=== PATIENT | male | born 1935 | race Caucasian/White ===

== ENCOUNTER 2023-02-20 16:43 | Inpatient (IN) | payer MEDICARE, OTHER ==
[~2023-02-20] VITALS: Ht 180.3 cm; Wt 79.0 kg
[2023-02-20 19:15] LABS: Base Excess Venous 13.9 mmol/L; Bicarbonate Venous 35.5 mmol/L (24.0-30.0); PCO2 Venous 63 mmHg (38-42)
[2023-02-20 19:43] VITALS: BP 117/81
[2023-02-20 20:00] VITALS: BP 111/49
[2023-02-20 21:00] VITALS: BP 127/55
[2023-02-20] MEDS ORDERED: ACETAMINOPHEN500 M2 PO (21:42)
[2023-02-20] MEDS ORDERED: HYDROCODONE-AC1 EA10 PO (21:46)
[2023-02-20] MEDS ORDERED: DOXA4 PO (21:47)
[2023-02-20] MEDS ORDERED: ELIQUIS2.5 MG PO (21:47)
[2023-02-20] MEDS ORDERED: FINA5 PO (21:47)
[2023-02-20] MEDS ORDERED: INSULANI SC (21:48)
[2023-02-20] MEDS ORDERED: Prinivil10 MG PO (21:49)
[2023-02-20] MEDS ORDERED: MAGNESIUM OXID500 MG PO (21:50)
[2023-02-20] MEDS ORDERED: METO50ER PO (21:50)
[2023-02-20] MEDS ORDERED: B-100 COMPLEX100 MG PO (21:51)
[2023-02-20] MEDS ORDERED: CENTRUM SILVER1 EAC2 PO (21:51)
[2023-02-20] MEDS ORDERED: OMEPRAZOLE MAGN20 M1 PO (21:52)
[2023-02-20] MEDS ORDERED: EZALLOR SPRINKL20 MG PO (21:53)
[2023-02-20] MEDS ORDERED: FIRVANQ50 MG/1 ML PO (22:00)
[2023-02-20 23:56] VITALS: BP 109/53
[2023-02-21] VITALS (17 sets, daily range): BP systolic 79–115; BP diastolic 48–74
[2023-02-21 03:24] LABS: Base Excess Venous 15.1 mmol/L; Bicarbonate Venous 36.4 mmol/L (24.0-30.0); PCO2 Venous 60.7 mmHg (38-42); pH Blood Venous 7.42 (7.34-7.37)
[2023-02-21 03:52] LABS: BASOPHILS ABSOLUTE AUTO 0.04 K/mm3 (0.00-0.23); BASOPHILS PERCENT AUTO 1 % (0-2); EOSINOPHILS ABSOLUTE AUTO 0.03 K/mm3 (0.00-0.68); EOSINOPHILS PERCENT AUTO 1 % (0-6); Hematocrit 29.5 % (37.0-53.0); Hemoglobin 8.3 g/dL (13.5-17.5); IMMATURE GRAN ABSOLUTE AUTO 0.05 K/mm3 (0.00-0.10); IMMATURE GRAN PERCENT AUTO 1 % (0-1); LYMPHOCYTES ABSOLUTE AUTO 0.95 K/mm3 (0.84-5.20); LYMPHOCYTES PERCENT AUTO 20 % (21-46); MONOCYTES ABSOLUTE AUTO 0.38 K/mm3 (0.16-1.47); MONOCYTES PERCENT AUTO 8 % (4-13); Mean Corpuscular HGB 23.8 pg (26.0-34.0); Mean Corpuscular HGB Conc 28.1 g/dL (31.5-36.5); Mean Corpuscular Volume 85 fL (80-100); Mean Platelet Volume 9.4 fL (9.1-12.4); NEUTROPHILS PERCENT AUTO 69 % (41-73); Platelet Count 177 K/mm3 (150-400); RDW Coefficient Variation 17.3 % (11.7-14.2); RDW Standard Deviation 53.3 fL (35.1-46.3); Red Blood Cell Count 3.49 M/mm3 (4.30-5.90); White Blood Cell Count 4.65 K/mm3 (4.00-11.30)
[2023-02-21 04:10] LABS: Calcium, Blood 8.6 mg/dL (8.5-10.1); Creatinine, Blood 1.05 mg/dL (0.60-1.20); Potassium, Blood 4.3 mmol/L (3.5-5.5)
--- NOTE | 2023-02-21 05:07 | NUR ---
SHIFT SUMMARY A/Ox2-3, CONFUSED/IMPULSIVE AT TIMES FOR PT HAS FREQUENTLY PULLED OF HIS TELE LEADS, SPO2 SENSOR, AND HIS OXYGEN. IS COOPERATIVE WITH CARE WITH REDIRECTION, BUT QUICKLY REVERTS BACK TO PULLING AT LINES. CARDIAC, ~0100 THIS AM PT CONVERTED FROM SR 70-80'S TO AFIB RHYTHM IN THE 90-110'S. PT DENIES ANY CP OR PRESSURE OF THIS NOTE. RESPIRATORY, MAINTAINS SPO2 >90% ON HIS BASELINE O2 OF 2L (PER THE SPOUSES REPORT . CONTINUES TO HAVE DIMINISHED LS WELL FINE INSPIRATORY CRACKLES IN THE BASES. DENIES ANY SOB OR DYSPNEA AT REST HOWEVER. GI/, PT HAS BEEN INCONTINENT T/O THE NIGHT, CONDOM CATH PLACED. CONDOM CATH PATENT AND DRAINING YELLOW URINE TO GRAVITY. NO BM FOR MY SHIFT. PT IS WHEELCHAIR BOUND AT HOME (PER PT S SPOUSE) DUE TO HX OF LEFT BKA. PT HAS REMAINED NPO SINCE MD PER POTENTIAL THORACENTESIS THIS AM. ASSESSED PT FOR RISKS OF ANY IGNITION SOURCES WELL BEHAVIORS FOR INCREASED RISKS OF FIRE DANGER. PT EDUCATED ON COMMON SOURCES OF IGNITION WELL NEED TO KEEP A SAFE ENVIRONMENT. PT VOICED UNDERSTANDING. NO NEW ORDERS AT THIS TIME, WILL REPORT TO ONCOMING RN. VIKTORIA MOSHER OF THIS NOTE.
--- NOTE | 2023-02-21 07:15 | NUR ---
CARE ASSUMPTION DURING BEDSIDE SHIFT REPORT WITH MARIBEL RN THE PT IS LYING IN BED AWAKE ON 2L NC. PT IS CONFUSED ABOUT WHERE HE IS BUT HE CAN TELL ME HIS NAME AND DATE OF . PT DENIES ANY PAIN OR NAUSEA AND IS SPEAKING TO THIS RN W A SOFT BUT CLEAR VOICE. SPO2 >92% ON 2L NC.
[2023-02-21 08:17] LABS: International Normalized Ratio 1.19; Prothrombin Time Results 12.4 Sec (9.7-11.5)
[2023-02-21 13:49] LABS: Glucose, Blood 95 mg/dL (70-99)
--- NOTE | 2023-02-21 16:02 | NUR ---
UPDATE PTROVIDER NOTIFIED THAT PT WAS ABLE TO PASS BEDSIDE SWALLOW EVAL, PT PLACED ON CLEAR LIQUID DIET W ADVANCEMENT TOLERATED. PROVIDER NOTIFIED THAT THE PT HAS HAD VERY MINIMAL URINE OUTPUT THIS SHIFT AND BLADDER SCAN SHOWING 200ML. ORDER TO BLADDER SCAN PRN AND MONITOR.
--- NOTE | 2023-02-21 16:49 | NUR ---
DAY SHIFT SUMMARY PT HAS REMAINED AXO X2 BUT IS STILL CONFUSED ABOUT WHERE HE IS AND WHY HE IS HERE. THE PT HAS BEEN DROWSY THIS SHIFT TAKING SHORT NAPS ON AND OFF THROUGH OUT THE DAY. PT'S BP SOFT THIS SHIFT EVEN AFTER RECIEVING 1L NS BOLUS BUT REMAINED STABLE W MAP >65. MONITOR SHOWING AFIB 100-120'S W OCCASIONAL PVC'S THIS SHIFT. PT MAINTAINING SPO2 >92% ON 1-2L NC THIS SHIFT BUT WAS TITRATED DOWN TO RM AIR THIS AFTERNOON. PT HAS HAD ALMOST NO URINE OUTPUT THIS SHIFT AND BLADDER SCANS HAVE SHOWN <200ML, PROVIDER NOTIFIED W NO NEW ORDERS GIVEN. PT HAD ONE LOOSE INCONTINENT BM THIS SHIFT. PT'S UPDATED ON PT'S CONDITION AT 1650. PT PASSING BEDSIDE SWALLOW EVAL THIS AFTERNOON AND TOLERATING CLEAR LIQUIDS. WILL REPORT TO ONCOMING RN.
[2023-02-21 19:40] LABS: Glucose, Blood 210 mg/dL (70-99)
--- NOTE | 2023-02-21 23:30 | NUR ---
UPDATE PT CONTINUES TO HAVE VERY LITTLE URINE OUTPUT. DR. EATON MADE AWARE WITH ORDERS FOR 250ML NS BOLUS AND CONTINUE TO MONITOR WITH BLADDER SCANS. NO OTHER ORDERS AT THIS TIME.
[2023-02-22] VITALS (18 sets, daily range): BP systolic 76–125; BP diastolic 36–85
[2023-02-22 01:26] LABS: BASOPHILS ABSOLUTE AUTO 0.02 K/mm3 (0.00-0.23); BASOPHILS PERCENT AUTO 0 % (0-2); EOSINOPHILS ABSOLUTE AUTO 0.02 K/mm3 (0.00-0.68); EOSINOPHILS PERCENT AUTO 0 % (0-6); Hematocrit 27.3 % (37.0-53.0); IMMATURE GRAN ABSOLUTE AUTO 0.04 K/mm3 (0.00-0.10); IMMATURE GRAN PERCENT AUTO 1 % (0-1); LYMPHOCYTES PERCENT AUTO 22 % (21-46); MONOCYTES ABSOLUTE AUTO 0.42 K/mm3 (0.16-1.47); MONOCYTES PERCENT AUTO 8 % (4-13); Mean Corpuscular HGB Conc 29.3 g/dL (31.5-36.5); Mean Corpuscular Volume 82 fL (80-100); Mean Platelet Volume 9.6 fL (9.1-12.4); NEUTROPHILS ABSOLUTE AUTO 3.49 K/mm3 (1.96-9.15); NEUTROPHILS PERCENT AUTO 69 % (41-73); Platelet Count 174 K/mm3 (150-400); RDW Coefficient Variation 17.4 % (11.7-14.2); RDW Standard Deviation 52.1 fL (35.1-46.3); Red Blood Cell Count 3.34 M/mm3 (4.30-5.90); White Blood Cell Count 5.09 K/mm3 (4.00-11.30)
[2023-02-22 01:43] LABS: Albumin, Blood 1.6 g/dL (3.4-5.0); Albumin/Globulin Ratio 0.4 (0.8-1.8); Bilirubin, Total 0.3 mg/dL (0.1-1.0); Bun/Creatinine Ratio 20.9 (12.0-20.0); Calcium, Blood 8.2 mg/dL (8.5-10.1); Creatinine, Blood 1.1 mg/dL (0.60-1.20); Globulin, Blood 3.7 g/dL (2.2-4.0); Potassium, Blood 3.8 mmol/L (3.5-5.5); Total Protein, Blood 5.3 g/dL (6.4-8.2)
--- NOTE | 2023-02-22 05:15 | NUR ---
SHIFT SUMMARY A/Ox2-3, CONTINUES TO BE CONFUSED/IMPULSIVE AT TIMES FOR PT HAS FREQUENTLY ATTEMPTED TO PULL OF HIS TELE LEADS, SPO2 SENSOR, AND OR HIS OXYGEN. A 1:1 SITTER AND OR REMOTE MONITORING HAS BEEN UTILIZED IN THE ROOM T/O THE SHIFT. FOR THE MOST PART, PT IS COOPERATIVE WITH CARE WHEN PROVIDED WITH REDIRECTION. CARDIAC, REMAINS IN A AFIB RHYTHM 90-120 S. WITH NO REPORTS OF ANY CP OR PRESSURE. RESPIRATORY, MAINTAINS SPO2 >90% ON RA-2L VIA HUMIDIFIED NC. CONTINUES TO HAVE DIMINISHED LS (ESPECIALLY ON RIGHT SIDE) WELL FINE INSPIRATORY CRACKLES IN THE BASES. DENIES ANY SOB OR DYSPNEA AT REST HOWEVER. GI/, PT HAS BEEN INCONTINENT T/O THE NIGHT OF BOTH URINE AND STOOL. PT CONTINUES TO HAVE POOR URINE OUTPUT AND HE APPEARS DRY. PROVIDER AWARE WITH ONE 250ML BOLUS OF NS ORDERED. AN HOUR AFTER BOLUS, PT FINALLY VOIDED MIKAYLA COLORED URINE. CONDOM CATH HAS BEEN PATENT AND DRAINING MIKAYLA URINE TO GRAVITY. INCONTINENT BM AT THE START OF THE SHIFT. STOOL CONTINUES TO BE SOFT/RUNNY, BUT BROWN IN COLOR. PT IS WHEELCHAIR BOUND AT HOME. CURRENTLY IS VERY WEAK AND CEILING LIFT SHOULD BE USED TO HELP AMBULATE PT TO CHAIRS. PT HAS REMAINED NPO SINCE MDN FOR SCHEDULED THORACENTESIS THIS AM. ASSESSED PT FOR RISKS OF ANY IGNITION SOURCES WELL BEHAVIORS FOR INCREASED RISKS OF FIRE DANGER. PT EDUCATED ON COMMON SOURCES OF IGNITION WELL NEED TO KEEP A SAFE ENVIRONMENT. PT VOICED UNDERSTANDING. NO NEW ORDERS AT THIS TIME, WILL REPORT TO ONCOMING RN. VIKTORIA MOSHER OF THIS NOTE.
[2023-02-22 07:49] LABS: Glucose, Blood 121 mg/dL (70-99)
[2023-02-22 07:59] LABS: Percent Saturation 36.8 % (20.0-50.0)
[2023-02-22 10:14] LABS: Automated BF RBC Count 0.013 M/mm3 (0-0); Automated BF WBC Count 1.414 K/mm3 (0-999)
[2023-02-22 10:21] LABS: Body Fluid WBC Count 1414 /mm3 (0-999); RBC Count, Body Fluid 13000 /mm3 (0-0)
[2023-02-22 10:24] LABS: Lactate Dehydrogenase, Body Fl 219 U/L
[2023-02-22 10:28] LABS: pH, Body Fluid 7.4
[2023-02-22 11:08] LABS: Total Cell Count, Body Fluid 100
[2023-02-22 11:10] LABS: Color, Body Fluid Yellow (None-Yellow)
--- NOTE | 2023-02-22 18:43 | NUR ---
PT SUMMARY: PT HAD THORACENTESIS DONE TODAY 45OMLS FLUID WAS TAKEN OUT, DRESSING ON RIGHT MID BACK INTACT, NO HEMATOMA/BLEEDING NOTED. PT BP WAS STILL RUNNING SOFT 90'S-100'S WITH MAP>60'S ORTHOSTATIC BP'S WITH NO CHANGES ONE TIME INFUSION OF 500MLS LR WAS INFUSED SBP STAYED >100 AFTER ALSO DIET WAS ADVANCED TO SOFT DIET AND PT TOLERATED WELL. HRR REMAINED AFIB CONTROLLED AT 80'S-90'S, SATS ABOVE 93% ON 1L OF O2, AFEBRILE. PT ALERT AND ORIENTED X3 STILL HAS SOME CONFUSION MOSTLY UPON WAKING UP, WILL PULL ON LINES AND TUBINGS, REMOTE MONITORING STILL ONGOING. PT HAS NO URINE OUTPUT AT LUNCH TIME CALLED PROVIDER DR HEARN ORDERED RENAL GEO THEN BEFORE SHIFT ENDS PT STILL HAS NO URINE IA CONDOM CATH AND BLADDER SCAN SHOWS 200MLS URINE RETAINED, CALLED DR SUH ABOUT RESULT OF RENAL GEO (RENAL AND BLADDER CALCULI) ORDERED TO STRAIGHT CATH PT, STRAIGHT CATH PERFORMED 200MLS URINE WAS COLLECTED URINE DARK YELLOW IN COLOR WITH SEDIMENTS. PT HAD 2 LOOSE DARK BROWN BM, BED BATH COMPLETED. PT/OT ABLE TO WORK WITH THE PT, PT WAS ABLE TO SIT ON THE SIDE OF THE BED PER REPORT, STILL TO USE CEILING LIFT FOR TRANSFERS. JESSICA CALLED AND WAS GIVEN UPDATE REGARDING PT'S STATUS. PT RESTING IN BED AT THIS TIME, CALL LIGHTS IN REACH WILL REPORT TO ONCOMING SHIFT
[2023-02-23 03:00] VITALS: BP 115/54
--- NOTE | 2023-02-23 03:05 | NUR ---
UPDATE PT NOTED TO HAVE NO URINE OUTPUT FOR >6HRS. BLADDER SCAN REVEALED ONLY 229ML IN BLADDER. DR. OLIVA NOTIFIED WITH ORDERS TO ADMINISTER 500ML BOLUS OF NS AND TO CONTINUE TO MONITOR PT. NO OTHER ORDERS AT THIS TIME.
[2023-02-23 03:07] LABS: BASOPHILS ABSOLUTE AUTO 0.02 K/mm3 (0.00-0.23); BASOPHILS PERCENT AUTO 1 % (0-2); EOSINOPHILS ABSOLUTE AUTO 0.06 K/mm3 (0.00-0.68); EOSINOPHILS PERCENT AUTO 1 % (0-6); Hematocrit 27.1 % (37.0-53.0); Hemoglobin 7.8 g/dL (13.5-17.5); IMMATURE GRAN ABSOLUTE AUTO 0.03 K/mm3 (0.00-0.10); IMMATURE GRAN PERCENT AUTO 1 % (0-1); LYMPHOCYTES ABSOLUTE AUTO 1.04 K/mm3 (0.84-5.20); LYMPHOCYTES PERCENT AUTO 25 % (21-46); MONOCYTES ABSOLUTE AUTO 0.39 K/mm3 (0.16-1.47); MONOCYTES PERCENT AUTO 9 % (4-13); Mean Corpuscular HGB Conc 28.8 g/dL (31.5-36.5); Mean Corpuscular Volume 83 fL (80-100); Mean Platelet Volume 9.5 fL (9.1-12.4); NEUTROPHILS ABSOLUTE AUTO 2.64 K/mm3 (1.96-9.15); NEUTROPHILS PERCENT AUTO 63 % (41-73); Platelet Count 165 K/mm3 (150-400); RDW Coefficient Variation 17.8 % (11.7-14.2); RDW Standard Deviation 54.4 fL (35.1-46.3); Red Blood Cell Count 3.25 M/mm3 (4.30-5.90); White Blood Cell Count 4.18 K/mm3 (4.00-11.30)
[2023-02-23 03:29] LABS: Albumin, Blood 1.6 g/dL (3.4-5.0); Albumin/Globulin Ratio 0.4 (0.8-1.8); Bilirubin, Total 0.4 mg/dL (0.1-1.0); Bun/Creatinine Ratio 19.2 (12.0-20.0); Calcium, Blood 8.3 mg/dL (8.5-10.1); Creatinine, Blood 1.04 mg/dL (0.60-1.20); Globulin, Blood 3.7 g/dL (2.2-4.0); Potassium, Blood 3.6 mmol/L (3.5-5.5); Total Protein, Blood 5.3 g/dL (6.4-8.2)
[2023-02-23 03:56] VITALS: BP 109/53
--- NOTE | 2023-02-23 05:50 | NUR ---
SHIFT SUMMARY A/Ox2-3, CONTINUES TO BE CONFUSED/IMPULSIVE AT TIMES FOR PT HAS FREQUENTLY ATTEMPTED TO PULL OF HIS TELE LEADS, SPO2 SENSOR, AND OR HIS OXYGEN. REMOTE MONITORING HAS BEEN UTILIZED IN THE ROOM T/O THE SHIFT. FOR THE MOST PART, PT IS COOPERATIVE WITH CARE WHEN PROVIDED WITH REDIRECTION. CARDIAC, REMAINS IN AFIB RHYTHM 80-100'S. WITH NO REPORTS OF ANY CP OR PRESSURE. RESPIRATORY, MAINTAINS SPO2 >90% ON RA-2L VIA HUMIDIFIED NC. LS IMPROVED FROM PREVIOUS NIGHT. DENIES ANY SOB OR DYSPNEA AT REST HOWEVER. PT UNDERWENT THORACENTESIS YESTERDAY PM WITH 450ML OF FLUID REMOVED PER DAY SHIFT REPORT. GI/, PT HAS BEEN INCONTINENT T/O THE NIGHT OF BOTH URINE AND STOOL. PT CONTINUES TO HAVE POOR URINE OUTPUT AND HE APPEARS DRY. PROVIDER AWARE WITH ONE 500ML BOLUS OF NS ORDERED. CONTINUES TO NOT HAVE ANY URINE OUTPUT DESPITE BOLUS. MD MADE AWARE WITH ORDERS TO CONTINUE TO MONITOR. CONTINUES TO HAVE SOFT/LIQUID BROWN STOOLS. PT IS WHEELCHAIR BOUND AT HOME. CURRENTLY IS VERY WEAK, BUT PT/OT ARE ON BOARD. PT'S DIET HAS BEEN ADVANCED TO SOFT BITE SIZE. THIS RN ENCOURAGED INCREASING PO FLUID INTAKE T/O THE SHIFT. ASSESSED PT FOR RISKS OF ANY IGNITION SOURCES WELL BEHAVIORS FOR INCREASED RISKS OF FIRE DANGER. PT EDUCATED ON COMMON SOURCES OF IGNITION WELL NEED TO KEEP A SAFE ENVIRONMENT. PT VOICED UNDERSTANDING. NO NEW ORDERS AT THIS TIME, WILL REPORT TO ONCOMING RN. VIKTORIA MOSHER OF THIS NOTE.
[2023-02-23 12:07] VITALS: BP 94/56
[2023-02-23 16:21] VITALS: BP 109/67
--- NOTE | 2023-02-23 16:26 | NUR ---
Case conference: Spoke with pt's Sherry today by phone. She is his primary decision maker. She initially stated she wants him to remain a "Full Code", but after our talk she states she will talk with the patient, and re-evaluate. She reports the pt was seen at [facility] for Left BKA, then to SNF in [facility]. Once d/c'd from SNF, he was promptly taken to [facility] by his for oxygen desaturations. He was admitted with pneumonia, then transferred here to [facility] for CHF exacerbation, ARF with hypoxia and hypercapnia. Large pleural effusion was noted on chest x-ray, so R side thoracentesis was ordered. Sherry reports both she and her want him to go to SNF preferrably in [place]. Plan to visit with pt tomorrow, as he did not appear to be awake enough for visit this am.
--- NOTE | 2023-02-23 18:44 | NUR ---
PT SUMMARY: PT WAS CONFUSED THIS MORNING PULLING ON LINES AND TUBINGS, PULLED TELE OFF MULTIPLE TIMES REMOTE MONITOR CALLED MULTIPLE TIMES WELL, PT STARTED TO REFUSE CARE WAS REDIRECTED MULTIPLE TIMES DOESNT SEEM TO RETAIN INFORMATION, REFUSE TO REPLACE BLUE SHIRT ON, WAS YELLING OUT THIS MORNING FOR HELP. PT C/O 11/24 LEFT LEG PAIN (PHANTOM PAIN) MEDICATED WITH DAILY TYLENOL AND WAS EFFECTIVE, THIS RN ABLE TO TALK TO THE ON THE PHONE THIS MORNING REQUESTED TO TALK TO THE PT TO REDIRECT HIM. PALLIATIVE CARE CAME AND SAW PT TODAY AND SPOKE TO THE , TO FF-UP CODE STATUS IN THE MORNING. FOLLOWED UP ECHO RESULT FROM [facility] PER [facility] ECHO WAS NOT DONE AT THEIR FACILITY, ECHO WAS ORDERED AND GOT DONE TODAY. ALSO CT CHEST AND ABD WAS DONE AND RESULTED RESIDENTS MADE AWARE OF RESULTS (PLEURAL EFFUSION). PT VITALS HRR REMAINED AFIB 80-90'S, SBP SOFT 90-110'S, SATS ABOVE 90% ON RA, AFEBRILE. PT HAD 280MLS OF DARK URINE OUTPUT FOR THE SHIFT VIA CONDOM CATH. PT WAS UP IN THE RECLINER TODAY TRANSFERED VIA LIFT. PT WITH POOR APPETITE ENSURE WAS OFFERED PT CONSUMED 2 CARTONS FOR THE SHIFT. PT REPOSITIONED IN BED FOR COMFORT. REMOTE MONITOR IN USE, BED ALARM ON FOR SAFETY, CALL LIGHTS IN REACH WILL REPORT TO ONCOMING SHIFT
[2023-02-23 21:26] VITALS: BP 136/55
[2023-02-24 00:44] VITALS: BP 116/81
[2023-02-24 04:00] VITALS: BP 116/48
[2023-02-24 04:36] LABS: BASOPHILS ABSOLUTE AUTO 0.03 K/mm3 (0.00-0.23); BASOPHILS PERCENT AUTO 1 % (0-2); EOSINOPHILS ABSOLUTE AUTO 0.04 K/mm3 (0.00-0.68); EOSINOPHILS PERCENT AUTO 1 % (0-6); Hematocrit 24.8 % (37.0-53.0); Hemoglobin 7.4 g/dL (13.5-17.5); IMMATURE GRAN ABSOLUTE AUTO 0.03 K/mm3 (0.00-0.10); IMMATURE GRAN PERCENT AUTO 1 % (0-1); LYMPHOCYTES ABSOLUTE AUTO 1.04 K/mm3 (0.84-5.20); LYMPHOCYTES PERCENT AUTO 26 % (21-46); MONOCYTES ABSOLUTE AUTO 0.33 K/mm3 (0.16-1.47); MONOCYTES PERCENT AUTO 8 % (4-13); Mean Corpuscular HGB 24.4 pg (26.0-34.0); Mean Corpuscular HGB Conc 29.8 g/dL (31.5-36.5); Mean Corpuscular Volume 82 fL (80-100); Mean Platelet Volume 10.5 fL (9.1-12.4); NEUTROPHILS ABSOLUTE AUTO 2.57 K/mm3 (1.96-9.15); NEUTROPHILS PERCENT AUTO 64 % (41-73); Platelet Count 147 K/mm3 (150-400); RDW Coefficient Variation 17.9 % (11.7-14.2); Red Blood Cell Count 3.03 M/mm3 (4.30-5.90); White Blood Cell Count 4.04 K/mm3 (4.00-11.30)
[2023-02-24 04:46] LABS: Albumin, Blood 1.6 g/dL (3.4-5.0); Albumin/Globulin Ratio 0.4 (0.8-1.8); Bilirubin, Total 0.3 mg/dL (0.1-1.0); Bun/Creatinine Ratio 18.7 (12.0-20.0); Calcium, Blood 8.1 mg/dL (8.5-10.1); Creatinine, Blood 1.07 mg/dL (0.60-1.20); Globulin, Blood 3.7 g/dL (2.2-4.0); Potassium, Blood 3.9 mmol/L (3.5-5.5); Total Protein, Blood 5.3 g/dL (6.4-8.2)
--- NOTE | 2023-02-24 06:49 | NUR ---
SHIFT SUMMARY PATIENT ALERT AND ORINETED X3. HAD NO COMPLAINTS OF PAIN OR SHORTNESS OF BREATH. PATIENT PLACED ON 1 LITER O2 FOR SLEEP TO HELP MAINTAIN OXYGEN >90%. VITAL SIGNS STABLE, AFIB ON TELE. NO ACUTE ISSUES NOTED OVERNIGHT. PATIENT ASSESSED FOR IGNITION RISK AND EDUCATED ON FIRE SAFETY IN THE HOSPITAL. WILL CONTINUE TO MONITOR. CALL LIGHT WITHIN REACH.
[2023-02-24 08:45] VITALS: BP 114/55
[2023-02-24 13:01] VITALS: BP 119/60
[2023-02-24 16:10] VITALS: BP 116/53
--- NOTE | 2023-02-24 18:14 | NUR ---
SHIFT SUMMARY LETHARGIC BUT WAKES TO VERBAL STIMULI. WEAK AND SOFT SPOKEN. SLEEPS MOST OF DAY. VSS, O2 AT 1L VIA NC. Q2 HR TURN. INC OF BLADDER AND BOWEL IN ATTENDS. CONDOM CATH IN PLACE, LOW URINE OUTPUT. BLADDER SCAN REVEALED MILD RETENTION OF 150-250 MLS. ENCOURAGING PO INTAKE OF FLUID. WATER, ICE TEA, AND MILK OFFERED. WORKED WITH OT, BED EXERCISES. ABLE TO EAT HIS MEALS ON HIS OWN. FORGETFUL, REMOTE MONITOR DISCONTINUED. MED STATUS. PLAN IS TO DC TO SNF ON [facility] WHERE HE LIVES. SPOKE WITH SPOUSE ON THE PHONE TODAY AND GAVE UPDATE.
[2023-02-25] VITALS (11 sets, daily range): BP systolic 96–121; BP diastolic 46–78
[2023-02-25 04:19] LABS: BASOPHILS ABSOLUTE AUTO 0.02 K/mm3 (0.00-0.23); BASOPHILS PERCENT AUTO 1 % (0-2); EOSINOPHILS ABSOLUTE AUTO 0.05 K/mm3 (0.00-0.68); EOSINOPHILS PERCENT AUTO 1 % (0-6); Hematocrit 24.5 % (37.0-53.0); Hemoglobin 7.2 g/dL (13.5-17.5); IMMATURE GRAN ABSOLUTE AUTO 0.02 K/mm3 (0.00-0.10); IMMATURE GRAN PERCENT AUTO 1 % (0-1); LYMPHOCYTES ABSOLUTE AUTO 0.96 K/mm3 (0.84-5.20); LYMPHOCYTES PERCENT AUTO 22 % (21-46); MONOCYTES ABSOLUTE AUTO 0.36 K/mm3 (0.16-1.47); MONOCYTES PERCENT AUTO 8 % (4-13); Mean Corpuscular HGB 24.2 pg (26.0-34.0); Mean Corpuscular HGB Conc 29.4 g/dL (31.5-36.5); Mean Corpuscular Volume 83 fL (80-100); Mean Platelet Volume 10.3 fL (9.1-12.4); NEUTROPHILS PERCENT AUTO 68 % (41-73); Platelet Count 140 K/mm3 (150-400); RDW Coefficient Variation 18.1 % (11.7-14.2); Red Blood Cell Count 2.97 M/mm3 (4.30-5.90); White Blood Cell Count 4.41 K/mm3 (4.00-11.30)
--- NOTE | 2023-02-25 06:24 | NUR ---
EOS NOTE: MOSTLY UNEVENTFUL NIGHT FOR PATIENT. PATIENT IS PLEASANTLY CONFUSED AND CONTINUALLY PULLS OF TELEMETRY DESPITE FREQUENTLY REORIENTING PATIENT TO SURROUNDINGS AND PURPOSE OF TELEMETRY STICKERS TO CHEST. OCCASIONALLY NEEDED TO BE PLACED ON 1L NC. MAINTAINED A.FIB 70-80'S. CONDOM CATH IN PLACE, STILL LOW URINE OUTPUT. MD AWARE.
[2023-02-25 06:46] LABS: Albumin, Blood 1.6 g/dL (3.4-5.0); Albumin/Globulin Ratio 0.4 (0.8-1.8); Bilirubin, Total 0.4 mg/dL (0.1-1.0); Bun/Creatinine Ratio 18.4 (12.0-20.0); Calcium, Blood 8.1 mg/dL (8.5-10.1); Creatinine, Blood 1.14 mg/dL (0.60-1.20); Globulin, Blood 3.6 g/dL (2.2-4.0); Total Protein, Blood 5.2 g/dL (6.4-8.2)
--- NOTE | 2023-02-25 08:05 | NUR ---
PATIENT IS ALERT AND ORIENTED. HE IS SOFT SPOKEN. 175 ML URINE DRAINED FROM CONDOM CATHETER AT 0800. DR. GARZA SAW THE PATIENT THIS MORNING. THE PATIENT NODS HIS HEAD YES OR NO MORE OFTEN THAN REPLYING VERBALLY. PATIENT STATES HE IS AND LIVES AT HOME WITH HIS AND THAT HE HAS A STEP DAUGHTER THAT IS HANDICAP. PATIENT IS ON RA AT THIS TIME, HE DOES DESAT WHILE LAYING IN BED TO 86% BUT RECOVERS QUICKLY WITHOUT SUPPLEMENTAL OXYGEN. PATIENT IS SITTING UP IN BED FOR BREAKFAST BUT HAS NOT TAKEN A BITE ON HIS OWN YET, HE STATES THAT HE CAN FEED HIMSELF. WILL CONTINUE TO MONITOR
--- NOTE | 2023-02-25 13:11 | NUR ---
PATIENT WAS TRANSFERRED TO THE RECLINER THIS MORNING BY OT AND RN. HE FED HIMSELF LUNCH. MORE AWAKE THIS AFTERNOON. WAITING TO INFUSE [facility]. UPDATE CALLED AND GIVEN TO THE PATIENT'S .
--- NOTE | 2023-02-25 13:51 | NUR ---
BLOOD TRANSFUSION STARTED AT 1349. VSS. PATIENT'S RESPIRATORY RATE IS FAST AT 34/MIN AND SHALLOW. HIS O2 SATURATION ON RA IS 92%. PATIENT IS ENCOURAGED TO DRINK WATER. POOR URINE OUTPUT. PATIENT IS ABLE TO HOLD CUP HIMSELF.
--- NOTE | 2023-02-25 15:23 | NUR ---
PATIENT IS SITTIN UP IN THE RECLINER, RECEIVING BLOOD AT THIS TIME. NO C/O OF SOB. LS ARE CLEAR AND DIMINISHED ON THE RIGHT SIDE. ON RA WITH O2 SATS OF 91%. PATIENT IS ENCOURAGED TO DRINK WATER. CONDOM CATHETER IS IN PLACE. WILL CONTINUE TO MONITOR
--- NOTE | 2023-02-25 16:53 | NUR ---
PATIENT IS ALERT AND ORIENTED AND COOPERATIVE WITH CARE THIS AFTERNOON. HE IS MORE AWAKE AND WILLING TO COMMUNICATE WITH STAFF COMPARED TO THIS MORNING WHEN IT SEEMED HE WAS SLEEPY AND DISORIENTED. THE UNIT OF [facility] HAS TRANSFUSED AND A FOLLOW UP H/H HAS BEEN ORDERED. THE PATIENT HAD AN INCONTINENT BM THIS AFTERNOON, ATTENDS CHANGED. CONDOM CATH IN PLACE, POOR URINE OUTPUT, PATIENT ENCOURAGED TO DRINK FLUIDS. STAGE 2 PRESSURE ULCER ON COCCYX, MEPILEX IN PLACE AND CHANGED THIS SHIFT. PATIENT ON 1L O2 VIA TO INCREASE HIS OXYGEN SATURATION FROM 86-87% TO 92%. NO COMPLAINTS OF PAIN. PATIENT HAS ASKED ABOUT DISCHARGE TO A SNF AND WHEN THAT WILL BE. АНДРЕЙ WAS ABLE TO TALK TO HIS OVER THE PHONE EARLIER TODAY. WILL CONTINUE TO MONITOR
[2023-02-25 17:57] LABS: Hemoglobin 8.7 g/dL (13.5-17.5)
[2023-02-26 04:35] VITALS: BP 117/53
--- NOTE | 2023-02-26 05:26 | NUR ---
SHIFT SUMMARY 87 YR M ADMITTED FOR RESPIRATORY FAILURE. FULL CODE. NO ACUTE CHANGES THIS SHIFT. PT WAS TRANSFERED FROM PCU AND HAD SLEPT FOR MOST OF THE TIME HE HAS BEEN ON THIS UNIT. WHEN HE WOKE HE WAS VERY CONFUSED AND ASKED WHERE HE WAS AND WHY. HE SPOKE IN A VOICE SO SOFT IT WAS HARD TO HEAR/UNDERSTAND HIM. NO C/O PAIN OR DISCOMFORT. PT IS CURRENTLY IN CONTACT PRECAUTIOND FOR HX OF C-DIF.
[2023-02-26 07:25] VITALS: BP 120/53
[2023-02-26 11:47] LABS: BASOPHILS ABSOLUTE AUTO 0.04 K/mm3 (0.00-0.23); BASOPHILS PERCENT AUTO 1 % (0-2); EOSINOPHILS ABSOLUTE AUTO 0.04 K/mm3 (0.00-0.68); EOSINOPHILS PERCENT AUTO 1 % (0-6); Hemoglobin 8.6 g/dL (13.5-17.5); IMMATURE GRAN ABSOLUTE AUTO 0.03 K/mm3 (0.00-0.10); IMMATURE GRAN PERCENT AUTO 1 % (0-1); LYMPHOCYTES ABSOLUTE AUTO 0.85 K/mm3 (0.84-5.20); LYMPHOCYTES PERCENT AUTO 18 % (21-46); MONOCYTES ABSOLUTE AUTO 0.41 K/mm3 (0.16-1.47); MONOCYTES PERCENT AUTO 9 % (4-13); Mean Corpuscular HGB 24.4 pg (26.0-34.0); Mean Corpuscular HGB Conc 29.7 g/dL (31.5-36.5); Mean Corpuscular Volume 82 fL (80-100); Mean Platelet Volume 10.3 fL (9.1-12.4); NEUTROPHILS ABSOLUTE AUTO 3.43 K/mm3 (1.96-9.15); NEUTROPHILS PERCENT AUTO 72 % (41-73); Platelet Count 128 K/mm3 (150-400); RDW Standard Deviation 53.5 fL (35.1-46.3); Red Blood Cell Count 3.52 M/mm3 (4.30-5.90)
[2023-02-26 12:05] LABS: Albumin, Blood 1.7 g/dL (3.4-5.0); Albumin/Globulin Ratio 0.5 (0.8-1.8); Bilirubin, Total 0.5 mg/dL (0.1-1.0); Bun/Creatinine Ratio 18.9 (12.0-20.0); Calcium, Blood 7.9 mg/dL (8.5-10.1); Creatinine, Blood 1.11 mg/dL (0.60-1.20); Globulin, Blood 3.6 g/dL (2.2-4.0); Potassium, Blood 4.1 mmol/L (3.5-5.5); Total Protein, Blood 5.3 g/dL (6.4-8.2)
[2023-02-26 16:02] VITALS: BP 122/54
--- NOTE | 2023-02-26 17:39 | NUR ---
SHIFT SUMMARY PATIENT VERY WEAK AND DECONDITIONED. PATIENT EMOTIONAL THIS MORNING AND APOLOGIZING FOR BEING A BURDEN TO HIS FAMILY. PATIENT TEARFUL AND TALKING ABOUT AN EVENT LAST EVENING WITH STAFF. PATIENT CONFUSED AT TIMES BUT COOPERATIVE. RR CONTINUE TO BE AROUND 30. CONTINUE TO ENCOURAGE PATIENT TO DEEP BREATH AND COUGH. EDUCATIONED FAMILY ON THE IMPORTANCE TO PROTECT AIRWAY AND MOBILIZE SECRETIONS.
[2023-02-26 20:39] VITALS: BP 94/67
--- NOTE | 2023-02-27 03:52 | NUR ---
SHIFT SUMMARY 87 YR M ADMITTED ON 02/20/23 FOR RESPIRATOR FAILURE. FULL CODE. NO ACUTE CHANGES THIS SHIFT. PT IS VERY SOFT SPOKEN BUT DID NOT SPEAK OR COMMUNICATE MUCH THIS SHIFT. HE WAS COOPERATIVE WITH MEDS THEN FELL ASLEEP AND APPEARS TO HAVE SLEPT FOR MOST OF THIS SHIFT. BED I LOW POSITION WITH ALARM ON AND CALL LIGHT WITHIN REACH.
[2023-02-27 04:01] VITALS: BP 128/58
[2023-02-27 05:24] LABS: BASOPHILS ABSOLUTE AUTO 0.03 K/mm3 (0.00-0.23); BASOPHILS PERCENT AUTO 1 % (0-2); EOSINOPHILS ABSOLUTE AUTO 0.03 K/mm3 (0.00-0.68); EOSINOPHILS PERCENT AUTO 1 % (0-6); Hematocrit 27.4 % (37.0-53.0); Hemoglobin 8.2 g/dL (13.5-17.5); IMMATURE GRAN ABSOLUTE AUTO 0.01 K/mm3 (0.00-0.10); IMMATURE GRAN PERCENT AUTO 0 % (0-1); LYMPHOCYTES ABSOLUTE AUTO 0.82 K/mm3 (0.84-5.20); LYMPHOCYTES PERCENT AUTO 19 % (21-46); MONOCYTES ABSOLUTE AUTO 0.39 K/mm3 (0.16-1.47); MONOCYTES PERCENT AUTO 9 % (4-13); Mean Corpuscular HGB 24.5 pg (26.0-34.0); Mean Corpuscular HGB Conc 29.9 g/dL (31.5-36.5); Mean Corpuscular Volume 82 fL (80-100); Mean Platelet Volume 10.1 fL (9.1-12.4); NEUTROPHILS ABSOLUTE AUTO 2.95 K/mm3 (1.96-9.15); NEUTROPHILS PERCENT AUTO 70 % (41-73); Platelet Count 126 K/mm3 (150-400); RDW Coefficient Variation 18.3 % (11.7-14.2); RDW Standard Deviation 53.7 fL (35.1-46.3); Red Blood Cell Count 3.35 M/mm3 (4.30-5.90); White Blood Cell Count 4.23 K/mm3 (4.00-11.30)
[2023-02-27 06:14] LABS: Albumin, Blood 1.6 g/dL (3.4-5.0); Albumin/Globulin Ratio 0.4 (0.8-1.8); Bilirubin, Total 0.6 mg/dL (0.1-1.0); Bun/Creatinine Ratio 20.8 (12.0-20.0); Calcium, Blood 7.9 mg/dL (8.5-10.1); Creatinine, Blood 1.06 mg/dL (0.60-1.20); Globulin, Blood 3.8 g/dL (2.2-4.0); Potassium, Blood 3.9 mmol/L (3.5-5.5); Total Protein, Blood 5.4 g/dL (6.4-8.2)
[2023-02-27 07:49] VITALS: BP 112/73
[2023-02-27 15:08] VITALS: BP 99/54
--- NOTE | 2023-02-27 17:14 | NUR ---
SHIFT SUMMARY PATIENT SLEEPY MOST OF THE DAY. POOR APPETITE-ONLY EATING BITES. VOICE AT A WISPER. CONTINUE TO ENCOURAGE PATIENT TO COUGH AND DEEP BREATH. PATIENT ATTEMPTED TO GET OOB X1 WITHOUT HELP. PATIENT INCONTINENT STOOL AND URINE NEEDING FREQUENT ATTENDS CHANGES. GROIN EXCORIATED. BARRIER CREAM APPLIED TO AREA NEEDED WITH ATTENDS CHANGES. SKIN CARE PROVIDED TO R LOWER EXTREMETY BECAUSE OF SCALEY DRY SKIN. FAMILY CALLED AND ATTEMPTED TO SPEAK TO PATIENT X2 DURING SHIFT.
--- NOTE | 2023-02-27 18:13 | NUR ---
PHONE CALL WITH CALLED TO SPEAK TO PATIENT. UPSET THAT SHE COULD NOT HEAR HIM ON THE PHONE. PATIENT EXHAUSTED AND EASILY DRIFTING BACK TO SLEEP WHILE TRYING TO TALK TO . DEMANDING TO KNOW WHAT WAS WRONG WITH PATIENT AND DEMANDING US TO GET HIM UP OUT OF BED OR DANGLING AT BEDSIDE. YELLING AT NURSE AND STATING THAT IT WAS OUR FAULT PATIENT WAS LIKE THIS AND WE WERE NOT TAKING CARE OF HIM. STATES THAT SHE WILL BE SPEAKING TO MANY DOCTORS AND DEMANDING TO KNOW WHAT IS WRONG WITH HIM. INFORMED THAT HE MAY HAVE A LITTLE FAILURE TO THRIVE BECAUSE HE DOES NOT WANT TO EAT AND IS NOT SAFE TO TRY TO GET PATIENT TO BEDSIDE IF HE IS NOT AWAKE. TOLD THAT I WAS NOT GOING TO TOLERATE HER ABUSIVE CONVERSATION AND HUNG UP THE PHONE.
[2023-02-27 19:40] VITALS: BP 133/61
[2023-02-28 04:32] VITALS: BP 116/56
[2023-02-28 05:02] LABS: BASOPHILS ABSOLUTE AUTO 0.02 K/mm3 (0.00-0.23); BASOPHILS PERCENT AUTO 0 % (0-2); EOSINOPHILS ABSOLUTE AUTO 0.05 K/mm3 (0.00-0.68); EOSINOPHILS PERCENT AUTO 1 % (0-6); Hematocrit 28.4 % (37.0-53.0); IMMATURE GRAN ABSOLUTE AUTO 0.03 K/mm3 (0.00-0.10); IMMATURE GRAN PERCENT AUTO 1 % (0-1); LYMPHOCYTES ABSOLUTE AUTO 0.98 K/mm3 (0.84-5.20); LYMPHOCYTES PERCENT AUTO 20 % (21-46); MONOCYTES PERCENT AUTO 10 % (4-13); Mean Corpuscular HGB 24.4 pg (26.0-34.0); Mean Corpuscular HGB Conc 28.2 g/dL (31.5-36.5); Mean Platelet Volume 10.1 fL (9.1-12.4); NEUTROPHILS ABSOLUTE AUTO 3.26 K/mm3 (1.96-9.15); NEUTROPHILS PERCENT AUTO 68 % (41-73); Platelet Count 124 K/mm3 (150-400); RDW Coefficient Variation 18.2 % (11.7-14.2); Red Blood Cell Count 3.28 M/mm3 (4.30-5.90); White Blood Cell Count 4.84 K/mm3 (4.00-11.30)
[2023-02-28 05:06] LABS: Mean Corpuscular Volume 87 fL (80-100)
--- NOTE | 2023-02-28 05:57 | NUR ---
SHIFT SUMMARY A/OX2, SOFT SPEECH, GENARLIZED WEAKNESS. 2-3P MAX ASSIST FOR TRANSFERS. DENIES CHEST PAIN/PRESSURE. SPO2 >92% ON 2L NC. PG TO JO ANN. SLEPT T/O THE NIGHT. VSS, NO ACUTE CHANGES AT THIS TIME. BED IN LOWEST POSITION WITH CALL LIGHT IN REACH. WILL CONTINUE TO MONTIOR AND REPORT TO ONCOMING RN.
[2023-02-28 07:39] VITALS: BP 116/59
--- NOTE | 2023-02-28 07:51 | NUR ---
resp rate 32 Pt laying back resting quietly. rresp. shallow and unalbored. lung chapin dimished. Called Dr Polanco. COntinue POC
[2023-02-28 16:23] VITALS: BP 122/54
--- NOTE | 2023-02-28 18:25 | NUR ---
SHIFT NOTE PT ALERT. RIGHT LUNG FIELD DIMINISHED T/O. SAT 90% ON 2L. INCREASED OXYGEN TO 4L N/C. PT FEELING BETTER. HE WAS JOKING AND SMILING THIS EVENING. POOR APPETITE. LASIX GIVEN PER ORDER. LEFT UE POWER GLIDE CD&I. PT CALLED FOR URINAL TODAY. VOIDED MULTIPLE TIMES OF MIKAYLA ,URINE. DENIED PAIN. MILD SOB. VOICE QUALITY IMPROVED THIS EVENING. HE TRIES TO HELP TURN HIM. USED THE ROSA[facility] TO TRANSFER HIM TO THE RECLINER FOR THE AFTERNOON. NO NAPPING TODAY. MULTIPLE PHONE CALLS FROM FAMILY TODAY. RELATED FAMILY REQUEST TO TALK WITH DR TO DR HEARN. CONTINUE POC.
[2023-02-28 19:59] VITALS: BP 118/52
--- NOTE | 2023-03-01 04:40 | NUR ---
SHIFT SUMMARY ADMITTED FOR ACUTE RESPIRATORY FAILURE. FULL CODE. CONTACT [facility] FOR CDIFF. FOUND TO HAVE LARGE RIGHT PLEURAL EFFUSION. LASIX IS SCHEDULED. ELIQUIS WAS HELD FOR PLANNED THORACENTESIS TODAY. 4 LPM O2 HERE, ON RA @ HOME. [facility]A LIFT TO CHAIR. FROM [facility], PREVIOUS ADMIT THERE FOR CHF EXACERBATION. POWERGLIDE IN LEFT UPPER ARM. OLD LEFT BKA.
[2023-03-01 04:46] LABS: BASOPHILS ABSOLUTE AUTO 0.02 K/mm3 (0.00-0.23); BASOPHILS PERCENT AUTO 1 % (0-2); EOSINOPHILS ABSOLUTE AUTO 0.03 K/mm3 (0.00-0.68); EOSINOPHILS PERCENT AUTO 1 % (0-6); Hematocrit 28.2 % (37.0-53.0); IMMATURE GRAN ABSOLUTE AUTO 0.01 K/mm3 (0.00-0.10); IMMATURE GRAN PERCENT AUTO 0 % (0-1); LYMPHOCYTES ABSOLUTE AUTO 0.81 K/mm3 (0.84-5.20); LYMPHOCYTES PERCENT AUTO 20 % (21-46); MONOCYTES ABSOLUTE AUTO 0.32 K/mm3 (0.16-1.47); MONOCYTES PERCENT AUTO 8 % (4-13); Mean Corpuscular HGB 24.5 pg (26.0-34.0); Mean Corpuscular HGB Conc 28.4 g/dL (31.5-36.5); Mean Corpuscular Volume 87 fL (80-100); Mean Platelet Volume 10.2 fL (9.1-12.4); NEUTROPHILS ABSOLUTE AUTO 2.82 K/mm3 (1.96-9.15); NEUTROPHILS PERCENT AUTO 70 % (41-73); Platelet Count 123 K/mm3 (150-400); RDW Coefficient Variation 18.1 % (11.7-14.2); RDW Standard Deviation 57.7 fL (35.1-46.3); Red Blood Cell Count 3.26 M/mm3 (4.30-5.90); White Blood Cell Count 4.01 K/mm3 (4.00-11.30)
[2023-03-01 04:56] LABS: Albumin, Blood 1.7 g/dL (3.4-5.0); Albumin/Globulin Ratio 0.5 (0.8-1.8); Bilirubin, Total 0.5 mg/dL (0.1-1.0); Bun/Creatinine Ratio 19.3 (12.0-20.0); Calcium, Blood 8.2 mg/dL (8.5-10.1); Creatinine, Blood 1.14 mg/dL (0.60-1.20); Globulin, Blood 3.7 g/dL (2.2-4.0); Potassium, Blood 4.4 mmol/L (3.5-5.5); Total Protein, Blood 5.4 g/dL (6.4-8.2)
[2023-03-01 05:07] VITALS: BP 125/52
[2023-03-01 08:01] VITALS: BP 119/54
--- NOTE | 2023-03-01 12:11 | NUR ---
REPORT GIVEN TO TONIA MUNROE COVERING REST OF SHIFT
[2023-03-01 15:16] LABS: Base Excess Venous 11.5 mmol/L; Bicarbonate Venous 33.7 mmol/L (24.0-30.0); PCO2 Venous 74.1 mmHg (38-42); pH Blood Venous 7.31 (7.34-7.37)
[2023-03-01 15:58] VITALS: BP 104/60
--- NOTE | 2023-03-01 16:02 | NUR ---
THIS RN ASSUMED CARE AT 1200. PATIENT RESTING IN BED, DENIES NEEDS. PHYSICAL THERAPY AND OCCUPATIONAL THERAPY IN TO ASSESS. CALLED AND UPDATED. PATIENT ON 3-4L NASAL CANNULA. NOT URINATING, ONE LOOSE BOWEL MOVEMENTS. BLADDER SCAN DONE SHOWING 507ML. ORDER FOR STRAIGHT CATH X1. VBG DRAWN AND RESULTS CALLED INTO DR. GORE, REQUEST FOR BIPAP FOR THE NEXT HOUR AND THEN FOR PATIENT TO WEAR NIGHTLY AND FOR NAPS. RESPIRATORY IN ROOM AT THIS TIME SETTING UP BIPAP. VITAL SIGNS STABLE. DENIES PAINS. Q2 TURNING AND NEEDED. PARTIAL BED BATH COMPLETED. POWERGLIDE WNL. BOWEL TONES PRESENT. EATING AND DRINKING VERY SMALL AMOUNTS. CALL LIGHT IN REACH. BED ALARM IN PLACE.
--- NOTE | 2023-03-01 16:19 | NUR ---
PATIENT ABLE TO URINATE 500ML, NO NEED TO STRAIGHT CATH AT THIS TIME.
--- NOTE | 2023-03-01 17:55 | NUR ---
SHIFT SUMMARY: NO ACUTE CHANGES. PATIENT REMAINS ON 3L NASAL CANNULA WHEN OFF BIPAP. BIPAP IN PLACE AT THIS TIME. DENIES PAINS. VERY SOFT SPOKEN, ALERT TO SELF AND FAMILY. Q2 TURNING AND NEEDED. URINATING IN URINAL. BOWEL MOVEMENT X1 TODAY. UPDATED VIA PHONE CALL. DENIES NEEDS. CALL LIGHT IN REACH, BED ALARM IN PLACE. VITAL SIGNS STABLE.
[2023-03-01 20:20] VITALS: BP 104/50
--- NOTE | 2023-03-02 00:26 | NUR ---
WE WILL NEED A CONSENT FOR THORACENTESIS FROM PT'S TODAY - WILL REPORT THIS OFF TO ONCOMING SHIFT.
[2023-03-02 02:17] VITALS: BP 112/55
[2023-03-02 05:13] LABS: BASOPHILS ABSOLUTE AUTO 0.02 K/mm3 (0.00-0.23); BASOPHILS PERCENT AUTO 1 % (0-2); EOSINOPHILS ABSOLUTE AUTO 0.04 K/mm3 (0.00-0.68); EOSINOPHILS PERCENT AUTO 1 % (0-6); Hematocrit 25.7 % (37.0-53.0); Hemoglobin 7.4 g/dL (13.5-17.5); IMMATURE GRAN ABSOLUTE AUTO 0.02 K/mm3 (0.00-0.10); IMMATURE GRAN PERCENT AUTO 1 % (0-1); LYMPHOCYTES ABSOLUTE AUTO 0.83 K/mm3 (0.84-5.20); LYMPHOCYTES PERCENT AUTO 22 % (21-46); MONOCYTES ABSOLUTE AUTO 0.37 K/mm3 (0.16-1.47); MONOCYTES PERCENT AUTO 10 % (4-13); Mean Corpuscular HGB 24.5 pg (26.0-34.0); Mean Corpuscular HGB Conc 28.8 g/dL (31.5-36.5); Mean Corpuscular Volume 85 fL (80-100); Mean Platelet Volume 10.1 fL (9.1-12.4); NEUTROPHILS ABSOLUTE AUTO 2.42 K/mm3 (1.96-9.15); NEUTROPHILS PERCENT AUTO 66 % (41-73); Platelet Count 123 K/mm3 (150-400); RDW Coefficient Variation 18.1 % (11.7-14.2); RDW Standard Deviation 56.6 fL (35.1-46.3); Red Blood Cell Count 3.02 M/mm3 (4.30-5.90)
--- NOTE | 2023-03-02 05:54 | NUR ---
SHIFT SUMMARY - PT DIDN'T TOLERATE THE BIPAP MASK - ATTEMPTED X2 LAST NOC - PT WORE FOR APPX 5 MINUTES EACH TIME, AND THEN REFUSED TO PLACE BACK ON. OXYGEN WEANED DOWN TO 2L AT 0500, PT'S SATS HAVE BEEN WNL ON CONTINUOUS BIOX. PT REMAINED ALERT TO PERSON. FLUIDS AT BEDSIDE. CALL LIGHT WITHIN REACH. BED IN LOW POSITION. BED ALARM ON FOR PT SAFETY. WILL CONTINUE TO MONITOR UNTIL AM SHIFT CHANGE.
[2023-03-02 06:09] LABS: Albumin, Blood 1.7 g/dL (3.4-5.0); Albumin/Globulin Ratio 0.5 (0.8-1.8); Bilirubin, Total 0.3 mg/dL (0.1-1.0); Bun/Creatinine Ratio 21.8 (12.0-20.0); Calcium, Blood 8.2 mg/dL (8.5-10.1); Creatinine, Blood 1.1 mg/dL (0.60-1.20); Globulin, Blood 3.7 g/dL (2.2-4.0); Potassium, Blood 4.3 mmol/L (3.5-5.5); Total Protein, Blood 5.4 g/dL (6.4-8.2)
[2023-03-02 08:03] VITALS: BP 101/59
[2023-03-02 09:14] LABS: Base Excess Venous 11.8 mmol/L; Bicarbonate Venous 34.1 mmol/L (24.0-30.0); PCO2 Venous 71.6 mmHg (38-42); pH Blood Venous 7.33 (7.34-7.37)
[2023-03-02 15:51] VITALS: BP 93/56
--- NOTE | 2023-03-02 17:43 | NUR ---
Pt has decided he no longer wants to attempt rehab, he states he wants to return home. His Sherry is agreeable to this. Unfortunately, there is no Home Health available in [place] for 2 to 3 weeks. I discussed this with pt and his , but they are adamant about going home, and plan to just "wing it" until Home Health is available. We did discuss hospice, but Sherry states she would prefer to "ease into it", wants to start with Home Health, and when the HH staff state it's time, they will transition him to hospice. Spoke to [facility] staff regarding this, and they are sending the HH referral.
--- NOTE | 2023-03-02 18:43 | NUR ---
SHIFT SUMMARY: NAVEED IS A&OX1. VSS, BP ON THE LOW SIDE, CONSISTENT WITH TREND. PT'S AT BEDSIDE TODAY AND REQUESTED TO SPEAK WITH PALLIATIVE CARE REGARDING HOSPICE. PT IS TOLERATING PO INTAKE WELL, APPETITE POOR, REPORTS FEELING TIRED. HE STATED THAT HE IS [id number] AND FEELS UPSET THAT HE HAD TO HAVE HIS LEG AMPUTATED SO YOUNG. PT FORGETS TO USE HIS CALL LIGHT AND CALLS OUT FOR ASSISTANCE. ATTENDS IN PLACE, PT WAS ABLE TO USE THE URINAL FOR 500 ML OUTPUT THIS AFTERNOON AND HAS HAD TWO BOWEL MOVEMENTS THIS SHIFT. PT REQUIRES A LIFT TO TRANSFER FROM BED TO CHAIR. HE IS LYING IN BED WITH THE CALL LIGHT IN REACH. 2-3 LPM VIA NASAL CANNULA TO MAINTAIN O2 SATS >90%, SOB ON EXERTION NOTED. CONTINUOUS PULSE OX IN PLACE. WCTM UNTIL REPORT IS GIVEN TO TIMBER SURVEYOR RN.
[2023-03-02 20:46] VITALS: BP 100/54
[2023-03-03 02:36] VITALS: BP 106/56
--- NOTE | 2023-03-03 05:17 | NUR ---
SHIFT SUMMARY PATIENT ALERT, PLEASANT, COOPERATIVE. DENIES PAIN NOR DISCOFORT. NO ACUTE CHANGES NOTED OVERNIGHT. PG TO LEFT UPPER ARM, PATENT, SL. REFUSES BIPAP, SPO2 >90 ON 2L VIA NC. BED IN LOW POSITION, CALL LIGHT WITHIN REACH.
[2023-03-03 07:04] VITALS: BP 103/45
[2023-03-03 07:06] VITALS: BP 95/43
[2023-03-03 08:25] VITALS: BP 99/56
[2023-03-03 09:17] LABS: BASOPHILS ABSOLUTE AUTO 0.01 K/mm3 (0.00-0.23); BASOPHILS PERCENT AUTO 0 % (0-2); EOSINOPHILS ABSOLUTE AUTO 0.06 K/mm3 (0.00-0.68); EOSINOPHILS PERCENT AUTO 2 % (0-6); Hemoglobin 7.5 g/dL (13.5-17.5); IMMATURE GRAN ABSOLUTE AUTO 0.01 K/mm3 (0.00-0.10); IMMATURE GRAN PERCENT AUTO 0 % (0-1); LYMPHOCYTES ABSOLUTE AUTO 1.05 K/mm3 (0.84-5.20); LYMPHOCYTES PERCENT AUTO 28 % (21-46); MONOCYTES ABSOLUTE AUTO 0.42 K/mm3 (0.16-1.47); MONOCYTES PERCENT AUTO 11 % (4-13); Mean Corpuscular HGB 24.5 pg (26.0-34.0); Mean Corpuscular HGB Conc 28.8 g/dL (31.5-36.5); Mean Corpuscular Volume 85 fL (80-100); Mean Platelet Volume 9.4 fL (9.1-12.4); NEUTROPHILS ABSOLUTE AUTO 2.21 K/mm3 (1.96-9.15); NEUTROPHILS PERCENT AUTO 59 % (41-73); Platelet Count 126 K/mm3 (150-400); RDW Coefficient Variation 18.4 % (11.7-14.2); RDW Standard Deviation 56.9 fL (35.1-46.3); Red Blood Cell Count 3.06 M/mm3 (4.30-5.90); White Blood Cell Count 3.76 K/mm3 (4.00-11.30)
[2023-03-03 09:40] LABS: Albumin, Blood 1.8 g/dL (3.4-5.0); Albumin/Globulin Ratio 0.5 (0.8-1.8); Bilirubin, Total 0.4 mg/dL (0.1-1.0); Calcium, Blood 8.4 mg/dL (8.5-10.1); Creatinine, Blood 1.05 mg/dL (0.60-1.20); Globulin, Blood 3.8 g/dL (2.2-4.0); Potassium, Blood 4.1 mmol/L (3.5-5.5); Total Protein, Blood 5.6 g/dL (6.4-8.2)
[2023-03-03 09:49] LABS: BASOPHILS PERCENT MAN 0 % (0-2); EOSINOPHILS PERCENT MAN 0 % (0-6); LYMPHOCYTES ABSOLUTE MAN 0.86 K/mm3 (0.84-5.20); LYMPHOCYTES PERCENT MAN 23 % (21-46); MONOCYTES ABSOLUTE MAN 0.11 K/mm3 (0.16-1.47); MONOCYTES PERCENT MAN 3 % (4-13); NEUTROPHILS ABSOLUTE MAN 2.78 K/mm3 (1.96-9.15); SEG NEUTROPHILS PERCENT MAN 74 % (41-73); TOTAL CELLS COUNTED 31
[2023-03-03 11:23] LABS: Automated BF RBC Count 0.002 M/mm3 (0-0); Automated BF WBC Count 0.428 K/mm3 (0-999)
[2023-03-03 11:24] LABS: Glucose, Body Fluid 118 mg/dL; Lactate Dehydrogenase, Body Fl 128 U/L; Protein, Body Fluid 3.4 g/dL
[2023-03-03 11:26] LABS: Body Fluid WBC Count 428 /mm3 (0-999); RBC Count, Body Fluid 2000 /mm3 (0-0)
[2023-03-03 12:03] LABS: Appearance, Body Fluid Clear (Clear); Color, Body Fluid Yellow (None-Yellow)
[2023-03-03 12:04] LABS: pH, Body Fluid 7.9
[2023-03-03 12:07] LABS: Total Cell Count, Body Fluid 100
[2023-03-03 15:15] VITALS: BP 98/42
--- NOTE | 2023-03-03 17:17 | NUR ---
SHIFT SUMMARY Pt remains verbally aroused this shift. Pt will answer yes/no questions, falling back to sleep. Denies pain, VSS. Repositioned for comfort. Incontinent of bladder and bowel. BM today. Hygiene care provided. Safety maintained, call lifht in reach. Will continue to monitor this shift.
[2023-03-03 20:06] VITALS: BP 91/60
[2023-03-04 07:41] VITALS: BP 90/61
--- NOTE | 2023-03-04 07:42 | NUR ---
PATIENT HAD DIFFICULT TIME SLEEPING OVERNIGHT DUE TO STATE OF DISCOMFORT WEARING EITHER 02 OR BIPAP. HUMIDITY ADDED TO O2 (2.5L), AND OXYMETRY ATTACHED TO TOE INSTEAD OF FINGERS. NO COMPLAINTS OR INDICATIONS OF PAIN OR DISCOMFORT OVERNIGHT. MR NATARAJAN HAD A VERY FLAT AFFECT AND APPEARED TO BE QUITE SAD.
[2023-03-04 07:43] LABS: BASOPHILS ABSOLUTE AUTO 0.01 K/mm3 (0.00-0.23); BASOPHILS PERCENT AUTO 0 % (0-2); EOSINOPHILS ABSOLUTE AUTO 0.05 K/mm3 (0.00-0.68); EOSINOPHILS PERCENT AUTO 2 % (0-6); Hematocrit 25.5 % (37.0-53.0); Hemoglobin 7.4 g/dL (13.5-17.5); IMMATURE GRAN ABSOLUTE AUTO 0.01 K/mm3 (0.00-0.10); IMMATURE GRAN PERCENT AUTO 0 % (0-1); LYMPHOCYTES ABSOLUTE AUTO 0.75 K/mm3 (0.84-5.20); LYMPHOCYTES PERCENT AUTO 23 % (21-46); MONOCYTES ABSOLUTE AUTO 0.29 K/mm3 (0.16-1.47); MONOCYTES PERCENT AUTO 9 % (4-13); Mean Corpuscular HGB 24.5 pg (26.0-34.0); Mean Corpuscular Volume 84 fL (80-100); Mean Platelet Volume 10.1 fL (9.1-12.4); NEUTROPHILS ABSOLUTE AUTO 2.09 K/mm3 (1.96-9.15); NEUTROPHILS PERCENT AUTO 65 % (41-73); Platelet Count 133 K/mm3 (150-400); RDW Coefficient Variation 18.3 % (11.7-14.2); RDW Standard Deviation 55.9 fL (35.1-46.3); Red Blood Cell Count 3.02 M/mm3 (4.30-5.90)
[2023-03-04 08:20] LABS: Albumin, Blood 1.7 g/dL (3.4-5.0); Albumin/Globulin Ratio 0.5 (0.8-1.8); Bilirubin, Total 0.4 mg/dL (0.1-1.0); Bun/Creatinine Ratio 18.2 (12.0-20.0); Calcium, Blood 8.3 mg/dL (8.5-10.1); Creatinine, Blood 1.1 mg/dL (0.60-1.20); Globulin, Blood 3.6 g/dL (2.2-4.0); Potassium, Blood 3.6 mmol/L (3.5-5.5); Total Protein, Blood 5.3 g/dL (6.4-8.2)
--- NOTE | 2023-03-04 15:21 | NUR ---
SHIFT SUMMARY Pt remains A&OX3 this shift. Denies pain, VSS. 1:1 feed for meals, decreased appetite. Incontinent of B&B. Hygiene provided. Able to use urinal when prompted. Repostioned for comfort. Pt verbalizes that he feels like his time on earth is nearing an end. In further conversation, pt does not want CPR/intubation if his heart stopped. Stating further he doesnt want his to know about change in code status. Dr. Polanco updated and states will meet with pt at bedside.
[2023-03-04 15:56] VITALS: BP 104/48
[2023-03-04 15:59] VITALS: BP 115/65
--- NOTE | 2023-03-04 18:02 | NUR ---
pt wanted to change his code status. Review of options and pt opted for dnr limited treatment. He did not want me to tell his because it would make her sad. Advised him I could not send him home and not tell her. Pt expressing feeling hopless and just wanted to get it overwith. therputic conversation with pt about his fears and his irving in god. Called his and had a very good discussion about his choice and reviewed ways to give him dignity and comfort. She stated she is now starting to face where they are at and accempted DNR. Pt stated he wanted a beer. Called doctor and got dnr order and a one time order for beer. Becaue of his age and condition we will only give him a few sips. Hope is discharge tomorrow. Will contact the HH team and advise may need a hopice consult also.
[2023-03-04 20:34] VITALS: BP 101/49
--- NOTE | 2023-03-05 03:53 | NUR ---
SLEEPING WELL. FAR LESS 02 ALARMS TONIGHT. PATIENT HAS NO COMPLAINTS OR INDICAATIONS OF PAIN OR DISCOMFORT. ALL SMILES ABOUT GOING HOME TOMORROW.'WILL CONTINIUE TO OMONITOR
[2023-03-05 04:02] VITALS: BP 115/54
[2023-03-05 06:58] LABS: BASOPHILS ABSOLUTE AUTO 0.02 K/mm3 (0.00-0.23); BASOPHILS PERCENT AUTO 1 % (0-2); EOSINOPHILS ABSOLUTE AUTO 0.07 K/mm3 (0.00-0.68); EOSINOPHILS PERCENT AUTO 2 % (0-6); Hematocrit 25.5 % (37.0-53.0); Hemoglobin 7.4 g/dL (13.5-17.5); IMMATURE GRAN ABSOLUTE AUTO 0.01 K/mm3 (0.00-0.10); IMMATURE GRAN PERCENT AUTO 0 % (0-1); LYMPHOCYTES ABSOLUTE AUTO 1.16 K/mm3 (0.84-5.20); LYMPHOCYTES PERCENT AUTO 31 % (21-46); MONOCYTES ABSOLUTE AUTO 0.37 K/mm3 (0.16-1.47); MONOCYTES PERCENT AUTO 10 % (4-13); Mean Corpuscular HGB 24.3 pg (26.0-34.0); Mean Corpuscular Volume 84 fL (80-100); Mean Platelet Volume 9.5 fL (9.1-12.4); NEUTROPHILS ABSOLUTE AUTO 2.08 K/mm3 (1.96-9.15); NEUTROPHILS PERCENT AUTO 56 % (41-73); Platelet Count 138 K/mm3 (150-400); RDW Coefficient Variation 18.6 % (11.7-14.2); RDW Standard Deviation 56.6 fL (35.1-46.3); Red Blood Cell Count 3.04 M/mm3 (4.30-5.90); White Blood Cell Count 3.71 K/mm3 (4.00-11.30)
[2023-03-05 07:10] VITALS: BP 102/52
[2023-03-05 07:16] LABS: Albumin, Blood 1.7 g/dL (3.4-5.0); Albumin/Globulin Ratio 0.4 (0.8-1.8); Bilirubin, Total 0.4 mg/dL (0.1-1.0); Calcium, Blood 8.3 mg/dL (8.5-10.1); Creatinine, Blood 1.05 mg/dL (0.60-1.20); Globulin, Blood 3.8 g/dL (2.2-4.0); Potassium, Blood 3.6 mmol/L (3.5-5.5); Total Protein, Blood 5.5 g/dL (6.4-8.2)
--- NOTE | 2023-03-05 13:57 | NUR ---
CONSULTATIONS WITH CARE MANAGEMENT AND RESP THERAPY. PER HOME O2 EVAL, PT DOESN'T NEED OXYGEN TO MAINTAIN SAT. AFTER RESP THERAPY RECOMMENDATION, RN REMOVED OXYGEN FOR TRIAL OF COONTINUOUS PULSE OX. HE WAS ABLE TO MAINTAIN 95% OXYGEN ON ROOM AIR, WHILE LYING DOWN. CLINICAL ORTHOPTIST TO [employer] transportation home to [place]. RN notified CHARGE NURSE.
[2023-03-05 14:21] VITALS: BP 101/59
--- NOTE | 2023-03-05 15:28 | NUR ---
PT EXPERIENCED AN EPISODE OF DESATTING DOWN TO 87/88%. RESP THERAPY PERFORMED A SECOND HOME OXYGEN EVAL, AND RECOMMENDED 1LPM VIA NC FOR ACTIVITY AND REST. RN UPDATED CARE MANAGEMENT.
--- NOTE | 2023-03-05 18:35 | NUR ---
RN WITH MANY CONSULTATIONS WITH HAND SPRING REPAIRER TO COORDINATE DISCHARGE PROCESS. THIS RN CALLED PT'S [facility], TO VERBALLY REVIEW DISCHARGE EDUCATION AND INSTRUCTION. COVERED DISCHARGE MEDS, FOLLOW UP WITH PCP TO SCHEDULE OUTPT THORACENTESIS, CALL NUMBERS FOR [facility]. PT'S PORTABLE OXYGEN MACHINE WAS DELIVERED TODAY BY [facility], PT SIGNED FOR IT. PT'S IS TO CALL [facility] AT [phone] ONCE [facility] TRANSPORTS PT TO HOME. [facility]'S NUMBER IS [phone],
--- NOTE | 2023-03-05 18:38 | NUR ---
PT'S IV REMOVED FROM [facility] WITHOUT INCIDENT.PT IS MAINTAINING SATS ABOVE 92% ON 1LPM. HE IS A&O X3-4, OCCASIONALLY FORGETFUL OF HIS LIMITATIONS. PT USES URINAL WITH ASSISTANCE FROM STAFF. BELONGINGS PLACED IN PT BELONGINGS BAG, TO BE SENT WITH [facility] WHEN THEY ARRIVE. DISCHARGE PAPERWORK PLACED IN FOLDER IN PT BELONGINGS BAG. RN WILL CONTINUE TO MONITOR.
--- NOTE | 2023-03-05 19:39 | NUR ---
this rn called [facility] in [place] and left a VM with the Rx for discharge medication of Metoprolol 25mg XR, take 1 tab BID, disp 30 tablets. Hold for SBP <110 and HR <60.
[2023-03-05 19:48] VITALS: BP 105/53
== END 2023-03-05 21:04 | disposition home health service (06) | DRG 291 ==
LOC: PCU 16:43 → MEDS 18:46 → PCU 02-24 11:30 → MEDS 02-25 22:56
PROVIDERS: Family Medicine; Hospitalist; Internal Medicine; Nurse Practitioner Acute Care; ADMIT Hospitalist
PROC: 30233N1 Transfusion of Nonautologous Red Blood Cells into Peripheral Vein, Percutaneous Approach (ICD-10-PCS; 2023-02-25)
PROC: 0W993ZZ Drainage of Right Pleural Cavity, Percutaneous Approach (ICD-10-PCS; principal; 2023-03-03)
DX: I11.0 Hypertensive heart disease with heart failure (principal); I50.33 Acute on chronic diastolic (congestive) heart failure; J96.01 Acute respiratory failure with hypoxia; J96.02 Acute respiratory failure with hypercapnia; E87.0 Hyperosmolality and hypernatremia; J90 Pleural effusion, not elsewhere classified; E87.29 Other acidosis; J44.0 Chronic obstructive pulmonary disease with (acute) lower respiratory infection; J98.11 Atelectasis; Z66 Do not resuscitate; Z51.5 Encounter for palliative care; I87.2 Venous insufficiency (chronic) (peripheral); N26.1 Atrophy of kidney (terminal); R34 Anuria and oliguria; N20.0 Calculus of kidney; E11.9 Type 2 diabetes mellitus without complications; N21.0 Calculus in bladder; L89.152 Pressure ulcer of sacral region, stage 2; D63.8 Anemia in other chronic diseases classified elsewhere; I48.0 Paroxysmal atrial fibrillation; I95.9 Hypotension, unspecified; Z86.711 Personal history of pulmonary embolism; Z89.512 Acquired absence of left leg below knee
CPT/HCPCS: 32555; 36415; 71045; 71250; 74177; 76770; 80048; 80053; 82728; 82803; 82945; 82947; 83036; 83540; 83550; 83615; 83735; 83986; 84145; 84157; 84443; 85014; 85018; 85025; 85610; 86850; 86900; 86901; 86923; 87070; 87205; 88108; 88305; 89051; 93306; 94660; 94761; 94762; 97110; 97112; 97162; 97166; 97530; 97535; A9270; J1815; J1940; J7030; J7040; J7050; P9016; Q9967